=== PATIENT | female | born 1985 | race Caucasian/White ===

== ENCOUNTER 2018-02-24 22:39 | Inpatient (IN) | payer BC, MEDICAID ==
[~2018-02-24 22:39] MED LIST: ACET-3017 PO; ACET500T68 PO; CYCL10TA29 PO; FERR325T24 PO; IBUP800T37 PO; NITR-105 PO; NORE0.3536 PO; ONDA4TAB9 PO; ONDA4TAB97 PO; OXYC-865 PO; PREN1TAB15 PO
[2018-02-24 23:10] VITALS: BP 122/79
[2018-02-25] MEDS ORDERED: LR(*) 1000 ML BAG 1,000 ML IV SCH (01:49)
[2018-02-25] MEDS ORDERED: FAMOTIDINE(*) 20MG/50ML PREMIX 50 ML IVPB PRN (01:49)
[2018-02-25] MEDS ORDERED: OXYTOCIN 30 UNIT/D5LR 500 ML 500 ML IV PRN (01:49)
[2018-02-25] MEDS: DLR(*) 1000 ML BAG 1,000 ML IV SCH ×3 (01:49→21:49)
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
[2018-02-25] MEDS ORDERED: METOCLOPRAMIDE 10 MG/2 ML SDV IVP PRN (01:50)
[2018-02-25] MEDS ORDERED: LIDOCAINE 1% LOCAL 300 MG/30ML INJ PRN (01:50)
[2018-02-25] MEDS ORDERED: fentaNYL CITR 100 MCG/2 ML AMP IVP PRN (01:50)
[2018-02-25] MEDS ORDERED: FLUSH 10 ML SYR IVP PRN (01:50)
[2018-02-25] MEDS ORDERED: LIDOCAINE/SOD BICARB 8.4% SYR SC PRN (01:50)
[2018-02-25] MEDS ORDERED: MISOPROSTOL 200 MCG TAB ONE (02:02)
[2018-02-25] MEDS ORDERED: OXYTOCIN 30 UNIT/D5LR 500 ML 500 ML ONE (02:03)
[2018-02-25] MEDS ORDERED: METHYLERGONOVINE MAL 0.2MG/ML ONE (02:03)
[2018-02-25] MEDS ORDERED: CARBOPROST TROMETHAM 250MCG/ML IM ONLY ONE (02:03)
[2018-02-25] MEDS ORDERED: NS(*) 0.9% 1000 ML BAG 0 ML ONE (02:03)
[2018-02-25] MEDS ORDERED: BENZOCAINE 20% 60 ML BTL TP PRN (02:35)
[2018-02-25] MEDS ORDERED: GLYCERIN/WITCH HAZEL LEAF 1 PK TOP PRN (02:35)
[2018-02-25] MEDS ORDERED: HYDROCORTISONE 2.5% CR 30GM TB PR PRN (02:35)
[2018-02-25] MEDS ORDERED: MAGNESIUM HYDROXIDE* 30ML UDCP PO PRN (02:35)
[2018-02-25] MEDS ORDERED: ACETAMINOPHEN 325 MG TAB PO PRN (02:35)
--- NOTE | 2018-02-25 02:37 | OB Delivery Note ---
Delivery Note Vaginal Delivery Type: Spont. Vaginal Delivery Delivery Date: Feb 25, 2018 Delivery Time: 02:17 Estimated Gestational Age(wks): 40 Sex: Male [place] Apgars: 1 Minute (8), 5 Minute (9) Estimated Blood Loss: 300 Delivery Complications: Precipitous, Other (light meconium) Notes: Presented in labor. AROM with light mec noted. Progressed rapidly though first stage of labor and second stage was nearly contiguous with the first. Pt 8 cm and vomiting and subsequently felt urge to push. Delivered head over intact perineum and shoulders delivered without manipulation. Placenta delivered spontaneous and intact. No complications. Truck Driver Helper in Attendence: Yes Copies to: PATSY DUMONT MD, TRAVIS MD Feb 25, 2018 02:37
[2018-02-25 04:03] LABS: PLATELET COUNT, AUTOMATED 181 K/uL (150-450)
[2018-02-25] MEDS: LANOLIN OINT 7 GM TUBE TP PRN ×2 (04:29→14:20)
[2018-02-25 07:33] VITALS: BP 132/80
[2018-02-25] MEDS: APAP/HYDROCODONE 325/5 TAB PO PRN ×5 (07:42→20:17)
[2018-02-25] MEDS ORDERED: MISOPROSTOL 200 MCG TAB PO ONE (08:05)
[2018-02-25] MEDS: METHYLERGONOVINE MAL 0.2MG TAB PO SCH ×3 (08:29→20:17)
[2018-02-25] MEDS: DOCUSATE CALCIUM 240 MG CAP PO SCH ×2 (08:29→20:18)
[2018-02-25] MEDS ORDERED: IBUPROFEN 800 MG TAB PO SCH (09:00)
[2018-02-25] MEDS ORDERED: PREN-127 PO (09:05)
[2018-02-25] MEDS ORDERED: SERT-173 PO (09:05)
[2018-02-25 09:47] VITALS: BP 131/72
[2018-02-25] MEDS ORDERED: MEASLES,MUMP,RUBELLA VAC 0.5ML SUBQ ONE (10:00)
[2018-02-25] MEDS ORDERED: DIPHTH/TETANUS/ACEL. PERTUSSIS IM ONLY ONE (10:00)
[2018-02-25] MEDS ORDERED: INFLUENZA VIRUS VAC 0.5 ML SYR IM ONLY ONE (10:00)
--- NOTE | 2018-02-25 10:09 | OB/GYN Progress Note ---
OB Subjective Progress Notes Subjective Doing well. Pain controlled and ambulating to BR well. Voiding without difficulty. Bleeding was heavier earlier but has responded to methergine. GI: NEG Nausea : Voiding Well Pain: Mild OB Objective Physical Exam Vital Signs Date Time Temp Pulse Resp B/P (MAP) Pulse Ox O2 Delivery O2 Flow Rate FiO2 02/25/18 09:47 98.0 70 16 131/72 (91) 02/24/18 23:10 96 Room Air General Appearance: Alert/Awake/No Acute Distress Neurological: No Gross deficits Eyes: Normal Extraocular Movement & Vison Respiratory: No Respiratory Distress Abdomen: Soft, Non-Tender, Non-Distended, Fundus Firm (1cm below) Extremities: No Cyanosis,Clubbing or Edema Integumentary: Skin Intact without Lesions or Rash Psychological: Alert & Oriented X3, Appropriate Mood & Affect Result Diagram: 02/25/18 0351 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 Continue Methergine today x 24hr for bleeding control. PATSY DUMONT MD Feb 25, 2018 10:09
[2018-02-25] MEDS: SERTRALINE HCL 50 MG TAB PO SCH (10:27)
[2018-02-25] MEDS: IBUPROFEN 800 MG TAB PO SCH ×3 (11:13→23:53)
[2018-02-25 14:22] VITALS: BP 126/63
[2018-02-25 20:00] VITALS: BP 112/58
[2018-02-26] MEDS: METHYLERGONOVINE MAL 0.2MG TAB PO SCH ×3 (02:00→14:00)
[2018-02-26 04:30] VITALS: BP 121/60
[2018-02-26] MEDS: IBUPROFEN 800 MG TAB PO SCH ×2 (04:42→12:41)
--- NOTE | 2018-02-26 08:34 | OB/GYN Progress Note ---
OB Subjective Progress Notes Subjective Doing well. No problems. Bleeding light and pain controlled. GI: NEG Nausea : Voiding Well Pain: Mild OB Objective Physical Exam Vital Signs Date Time Temp Pulse Resp B/P (MAP) Pulse Ox O2 Delivery O2 Flow Rate FiO2 02/26/18 04:30 98.5 65 18 121/60 (80) Room Air 02/25/18 14:22 92 General Appearance: Alert/Awake/No Acute Distress Neurological: No Gross deficits Eyes: Normal Extraocular Movement & Vison Cardiovascular: Normal Rhythm & Peripheral Pulses, Regular Rate and Rhythm Respiratory: No Respiratory Distress, Clear to Auscultation Abdomen: Soft, Non-Tender, Non-Distended, Fundus Firm (1cm below), Non-Tender Extremities: No Cyanosis,Clubbing or Edema Integumentary: Skin Intact without Lesions or Rash Psychological: Alert & Oriented X3, Appropriate Mood & Affect Result Diagram: 02/26/18 0553 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 Return to office at 6 weeks. Pelvic rest until then. PATSY DUMONT MD Feb 26, 2018 08:34
[2018-02-26] MEDS ORDERED: LOR5/325 PO (08:35)
[2018-02-26] MEDS ORDERED: IBUP800T37 PO (08:35)
--- NOTE | 2018-02-26 08:37 | OB/GYN Discharge Summary ---
Discharge Summary Reason for Hosp/Final Diag: (1) Labor without complication (2) 40 weeks gestation of (3) Meconium in amniotic fluid (4) care and examination immediately after delivery Hospital Course & Plan: Reviewed instruction and precautions. Return to office at 6 weeks. Pelvic rest until then. Lates Vital Signs Vital Signs Date Time Temp Pulse Resp B/P (MAP) Pulse Ox O2 Delivery O2 Flow Rate FiO2 02/26/18 04:30 98.5 65 18 121/60 (80) Room Air 02/25/18 14:22 92 Weight (Pounds): 157 Result Diagram: 02/26/18 0553 Condition: Improved Discharge: Home, Self [facility] Meds Active Scripts Hydrocodone Bit/Acetaminophen (HYDROCODON-ACETAMINOPHEN 5-325) 1 Each Tablet, 1- 2 EACH PO Q4H Y for PAIN, #10 TAB 0 Refills Prov:FOREST GANDHI MD 02/26/18 Reported Medications Vits W-Ca,Fe,Fa(<1MG) ( VITAMINS) 1 Each Tablet, 1 EACH PO DAILY, TAB 02/25/18 Sertraline Hcl (ZOLOFT) 100 Mg Tablet, 1 TAB PO QDAY, TAB 02/25/18 Follow up Referrals: CARE TRANSITION MANAGER - In 6 Weeks @ [facility] with Forest Gandhi Md Follow up with: Dr. Gandhi [phone] Follow up in: 6 wks PP or PO Discharge Diet: As Tolerates Discharge Activity: As Tolerates, No Heavy Lifting x 6 wks, No Heavy Lifting > 10lb, Pelvic Rest Copies to: FOREST GANDHI MD, TRAVIS MD Feb 26, 2018 08:37
[2018-02-26] MEDS: DOCUSATE CALCIUM 240 MG CAP PO SCH (09:05)
[2018-02-26] MEDS: SERTRALINE HCL 50 MG TAB PO SCH (09:05)
[2018-02-26 10:10] VITALS: BP 125/95
== END 2018-02-26 14:05 | disposition home or self-care (01) | DRG 775 ==
LOC: OB 22:39
PROVIDERS: ADMIT Obstetrics & Gynecology; ATTEND Obstetrics & Gynecology
PROC: 10E0XZZ Delivery of Products of Conception, External Approach (ICD-10-PCS; principal; 2018-02-25)
PROC: 10907ZC Drainage of Amniotic Fluid, Therapeutic from Products of Conception, Via Natural or Artificial Opening (ICD-10-PCS; 2018-02-25)
DX: O62.3 Precipitate labor (principal); O77.0 Labor and delivery complicated by meconium in amniotic fluid; O99.344 Other mental disorders complicating childbirth; J45.990 Exercise induced bronchospasm; G43.909 Migraine, unspecified, not intractable, without status migrainosus; F41.9 Anxiety disorder, unspecified; Z3A.40 40 weeks gestation of pregnancy; Z37.0 Single live birth
CPT/HCPCS: 36415; 59025; 85025; 85027; 86850; 86870; 86900; 86901; J2590